=== PATIENT | female | born 1995 | race Caucasian/White ===

== ENCOUNTER 2019-06-13 18:18 | Emergency (ER) | payer OTHER, SELFPAY ==
[2019-06-13 18:32] VITALS: BP 121/62; PULSE 85; RESP 20; TEMP 36.9; O2SAT 100
--- NOTE | 2019-06-13 19:22 | ED.GENADULT ---
HPI - General Adult General Chief complaint: Upper Respiratory Infection Stated complaint: sinus pain/pressure/tooth removed last week Time Seen by Provider: 06/13/19 19:22 Source: patient and RN notes reviewed Mode of arrival: ambulatory Limitations: no limitations History of Present Illness HPI narrative: 24-year-old female who presents to [facility] care with complaints of sinus pain, pressure, and congestion for the last 5 days.Patient states one week ago she had right upper wisdom extraction done and 2 days later is when her symptoms started. Patient denies any known fever, chills or sweats, has pain in her right sinus area, right ear, and feels her glands on her right neck are swollen, has foul taste in her mouth,post nasal drainage, Patient denies any shortness of breath or any cough, states that she has been taking Ibuprofen for her discomfort. MD complaint: sinus congestion, pressure Onset (ago): day(s) (5) Location: head Radiation: non-radiation and other (right ear) Severity: moderate Severity scale (1-10): 6 Quality: aching Pain Consistency: constant Relieving factors: none Exacerbating factors: none Associated symptoms: other (foul taste in mouth) Treatments prior to arrival: NSAID Related Data Home Medications Medication Instructions Recorded Confirmed pediatric multivitamin-iron 1 tablet PO DAILY 06/13/19 06/13/19 [[place]/Iron] Allergies Allergy/AdvReac Type Severity Reaction Status Date / Time No Known Allergies Allergy Verified 06/13/19 19:16 Review of Systems Review of Systems: All systems reviewed & are unremarkable except as noted in HPI and below Constitutional: Constitutional: Reports as per HPI and Reports no additional constitutional complaints Eyes: Eyes: Reports as per HPI and Reports no additional eye complaints ENT: Reports system reviewed and no additional complaints, except as documented, Reports as per HPI and Reports nasal congestion Comments: sinus pressure and pain right facial region and pain right ear, voices minimal discomfort to dental extraction site Cardiovascular: Cardiovascular: Reports as per HPI and Reports no additional cardiovascular complaints Respiratory: Respiratory: Reports as per HPI and Reports no additional respiratory complaints Gastrointestinal: Gastrointestinal: Reports as per HPI and Reports no additional gastrointestinal complaints Genitourinary: Genitourinary: Reports no additional female genitourinary complaints and Reports as per HPI Musculoskeletal: Musculoskeletal: Reports no additional musculoskeletal complaints and Reports as per HPI Integumentary/Breasts: Skin/Breast: Reports system reviewed and no additional complaints, except as docu and Reports as per HPI Neurologic: Reports system reviewed and no additional complaints, except as documented and Reports as per HPI Psychiatric: Psychiatric: Reports no additional psychiatric complaints and Reports as per HPI Endocrine: Endocrine: Reports no additional endocrine complaints and Reports as per HPI Hematologic/Lymphatic: Hematologic/Lymphatic: Reports no additional hematologic/lymphatic complaints Allergic/Immunologic: Allergic/Immunologic: Reports no additional allergic/immunologic complaints and Reports as per HPI [facility] Past Medical History Medical History (Updated 06/14/19 @ 00:00 by Irvin Hernandez) No significant past medical history Surgical History Surgical History (Updated 06/17/19 @ 16:53 by Chanel Larry NP) History of wisdom tooth extraction, class I edentulism Social History Social History (Updated 06/17/19 @ 16:51 by Chanel Larry NP) Smoking status: Never smoker Living arrangements: with family Occupation/Education: student Gender identity (if verbalized by the patient): Female Comments At time of signature, agree with nursing past medical, surgical, social history. There is no relevant family history pertinent to the presenting complaint Exam
== END 2019-06-13 19:45 | disposition home or self-care (01) ==
PROVIDERS: Emergency Provider Registered Nurse
DX: J32.9 Chronic sinusitis, unspecified (principal)
CPT/HCPCS: 87081; 87880; 99203; G0463